=== PATIENT | female | born 1995 ===

== ENCOUNTER 2018-02-14 19:03 | Emergency (ER) | payer SELFPAY ==
[2018-02-14 19:14] VITALS: BP 102/66
--- NOTE | 2018-02-14 19:26 | UC ---
Laceration HPI - HPI Summary HPI Summary: 22 y/o female presents to the urgent care c/o left index finger laceration w/ a kitchen knife around 1800PM today. Pt reports bleeding stopped w/ pressure , but now has returned. Pt is unsure when was the last Tetanus vaccine. Pain at touch is 5/10. Pt denies fever, numbness or tingling sensation over the left hand or fingers, SOB, chest pain, abdominal pain, N/V/d. - History Of Current Complaint Chief Complaint: UCLaceration Stated Complaint: FINGER LAC Time Seen by Provider: 02/14/18 19:16 Hx Obtained From: Patient Hx Last Menstrual Period: 01/14/18 Laceration Location: Finger - left index Mechanism Of Injury: Sharp Trauma Onset/Duration: Sudden Onset, Lasting Hours - 1 hrs ago, Still Present Severity: Moderate Pain Intensity: 5 Pain Scale Used: 0-10 Numeric Aggravating Factors: Other: - touch Related History: Dominant Hand Right - Allergies/Home Medications Allergies/Adverse Reactions: Allergies Allergy/AdvReac Type Severity Reaction Status Date / Time Sulfa (Sulfonamide Allergy Unknown Unknown Verified 02/14/18 19:15 Antibiotics) Reaction Details PMH/Surg Hx/FS Hx/Imm Hx Previously Healthy: Yes - Pt denies PMHX - Surgical History Surgical History: None - Family History Known Family History: Positive: None - Pt denies FMHX - Social History Alcohol Use: None Substance Use Type: None Smoking Status (MU): Never Smoked Tobacco - Immunization History Most Recent Tetanus Shot: UNKNOWN Review of Systems All Other Systems Reviewed And Are Negative: Yes Constitutional: Positive: Negative Skin: Positive: Other - laceration of left index finger w/ a kitchen knife still bleeding Eyes: Positive: Negative ENT: Positive: Negative Respiratory: Positive: Negative Cardiovascular: Positive: Negative Gastrointestinal: Positive: Negative Genitourinary: Positive: Negative Motor: Positive: Negative Neurovascular: Positive: Negative Musculoskeletal: Positive: Other: - left index finger pain s/p laceration Neurological: Positive: Negative Psychological: Positive: Negative Is Patient Immunocompromised?: No Physical Exam - Summary Physical Exam Summary: Vital Signs Reviewed: Yes General: well developed, well nourished female sitting in the examining table w/ o any apparent distress Eye Exam: Normal Eyes: Positive: Conjunctiva Clear - PERRLA, EOMI, fundi grossly normal ENT: Positive: Normal ENT inspection, Hearing grossly normal, Pharynx normal, TMs normal Neck: Positive: Supple, Nontender, No Lymphadenopathy Respiratory: Positive: Chest non-tender, Lungs clear, Normal breath sounds, No respiratory distress Cardiovascular: Positive: RRR, No Murmur, Pulses Normal, Brisk Capillary Refill Abdomen Description: Positive: Nontender, No Organomegaly, Soft. Negative: CVA Tenderness (R), CVA Tenderness (L) Bowel Sounds: Positive: Present Musculoskeletal: Positive: Strength Intact, ROM Intact, No Edema Neurological: Positive: Alert, Muscle Tone Normal Psychological Exam: Normal Skin: Positive:ventral side of the distal left index finger w/ triangular shape flap superficial laceration about 0.5cm in size, bleeding stopped w/ pressure after nurse irrigated well, no foreign body observed. mild tenderness to palpation, no ecchymosis around left index finger. FROM of LF hand and fingers , sensation intact, capillary refill brisk, and pulses WNL. Triage Information Reviewed: Yes Vital Signs: Initial Vital Signs Temp 97.5 F 02/14/18 19:10 Pulse 68 02/14/18 19:10 Resp 16 02/14/18 19:10 BP 102/66 02/14/18 19:10 Pulse Ox 98 02/14/18 19:10 Laceration Repair - Laceration Repair 1 Description: Irregular - triangular shape flap superficial laceration on the ventral side of the left index finger Laceration Size After Repair: Length (cm) - 0.5cm Modified For Repair: No Cleansing Completed Via Routine Prep: Yes Irrigation With Pressure Irrigation Device: Yes Closure Material: Skin Adhesive, SteriStrips - 3 Closure Method: Single Layer Suture Of: Skin Laceration Course/Dx - Course/Dx Course Of Treatment: 22 y/o female presents to the urgent care c/o left index finger laceration w/ a kitchen knife around 1800PM today. Pt reports bleeding stopped w/ pressure , but now has returned. Pt is unsure when was the last Tetanus vaccine. Pain at touch is 5/10. Pt denies fever, numbness or tingling sensation over the left hand or fingers, SOB, chest pain, abdominal pain, N/V/ d. Pt w/ a triangular shape flap superficial laceration on the ventral side of the left index finger, still bleeding about 0.5cm in size, FROM of finger on examination. LACERATION PROCEDURE NOTE: Copious irrigation was done with saline and the wound explored. There was no FB or deep structure injury noted. wound cleaned w/ Iodine swabs. Laceration closed w/ skin adhesive and 3 steri- strips. Wound dressed w/ sterile gauze by nurse.The Pt tolerated the procedure well without adverse effects. Neurovascular intact and FROM of left index finger. Tdap ordered and applied by nurse. Pt advised if any signs of infection develop to immediately return to the urgent care of PCP for further management and treatment. Pt understood and agreed and left the clinic ambulating A&Ox3. - Differential Dx - Laceration/Wound Differental Diagnoses: Abrasion, Avulsion, Laceration, Puncture Wound - Diagnosis Provider Diagnosis: Laceration of left index finger Discharge - Sign-Out/Discharge Documenting (check all that apply): Patient Departure - D/C home All imaging exams completed and their final reports reviewed: No Studies - Discharge Plan Condition: Stable Disposition: HOME Prescriptions: Bacitracin OINTMENT* 1 applic TOPICAL BID #1 tube Patient Education Materials: Laceration (ED), Skin Adhesive Care (ED) Referrals: [facility] [Outside] - 1 Week Additional Instructions: 1-Please apply topical antibiotic over the wound. Keep wound clean and dry. When steri-strips come off by itself. Please apply Bacitracin oint as directed to prevent infection 2- You were given a booster of Tetanus vaccine today 3-Take Ibuprofen or Tylenol PO q6-8hrs prn for pain or swelling. 4- If you develop fever or redness around your finger please return to the Urgent care or f/u w/ your PCP for further evaluation and treatment - Billing Disposition and Condition Condition: STABLE Disposition: Home
[2018-02-14] MEDS ORDERED: Tetan/Diph/Pertus SYR(Tdap)* 0.5 ML SYR(BOOSTRIX) use SYR IM ONE (19:28)
== END 2018-02-14 19:58 | disposition home or self-care (01) ==
LOC: UCEAST 19:03
DX: S61.211A Laceration without foreign body of left index finger without damage to nail, initial encounter (principal); Z88.2 Allergy status to sulfonamides; W26.0XXA Contact with knife, initial encounter; Y93.9 Activity, unspecified; Y92.000 Kitchen of unspecified non-institutional (private) residence as the place of occurrence of the external cause
CPT/HCPCS: 12001; 90471; 90715; 99202; G0463